=== PATIENT | female | born 1970 | race American Indian/Alaskan Native ===

== ENCOUNTER 2017-07-13 09:43 | Emergency (ER) | payer SELFPAY ==
[2017-07-13 09:51] VITALS: O2SAT 100
--- NOTE | 2017-07-13 10:16 | C.PDOC ---
History Of Present Illness 47 yr old female presents to the ER with complaints of itchy, diffuse rash which started on both legs n spread to the torso and arms 2 days ago. Patient states she had some almonds and cashews. Patient denies fever, chills, chest pain, SOB, throat swelling, mouth swelling, lip swelling, nausea, vomiting, weakness or numbness. Time Seen by Provider: 07/13/17 10:00 Chief Complaint (Nursing): Abnormal Skin Integrity History Per: Patient History/Exam Limitations: no limitations Onset/Duration Of Symptoms: Days (2) Past Medical History Reviewed: Historical Data, Nursing Documentation, Vital Signs Vital Signs: Last Vital Signs Temp 98.8 F 07/13/17 10:30 Pulse 95 H 07/13/17 10:30 Resp 18 07/13/17 10:30 BP 109/71 07/13/17 10:30 Pulse Ox 100 07/13/17 11:13 Family History: States: No Known Family Hx - Social History Hx Alcohol Use: No Hx Substance Use: No - Immunization History Hx Influenza Vaccination: No Review Of Systems Except As Marked, All Systems Reviewed And Found Negative. Constitutional: Negative for: Fever, Chills ENT: Negative for: Mouth Swelling, Throat Swelling Cardiovascular: Negative for: Chest Pain Respiratory: Negative for: Shortness of Breath Gastrointestinal: Negative for: Nausea, Vomiting Skin: Positive for: Rash (Itchy rash to both legs, torso and arms.) Neurological: Negative for: Weakness, Numbness Physical Exam - Physical Exam Appears: Non-toxic, No Acute Distress, In Acute Distress (Mildly uncomfortable) Skin: Warm, Dry, Rash (Diffuse, macular papular rash to the legs, arms, abdomen and back. Blanching and non vesicular. Spares the palms and solves.) Head: Atraumatic, Normacephalic Oral Mucosa: Moist Tongue: Normal Appearing, No Swelling Lips: Normal Appearing, No Swelling Throat: Normal, No Erythema, No Exudate, No Drooling Neck: Normal, Normal ROM, Supple Chest: Symmetrical, No Tenderness Cardiovascular: Rhythm Regular, No Murmur Respiratory: Normal Breath Sounds, No Rales, No Rhonchi, No Stridor, No Wheezing Extremity: Normal ROM, No Swelling Neurological/Psych: Oriented x3, Normal Speech, Normal Motor ED Course And Treatment O2 Sat by Pulse Oximetry: 100 (RA) Pulse Ox Interpretation: Normal Progress Note: PLAN: Benadryl PO, Pepcid PO & Prednisone PO. Disposition Counseled Patient/Family Regarding: Diagnosis, Need For Followup, Rx Given - Disposition Referrals: [facility] [Outside] Disposition: HOME/ ROUTINE Disposition Time: 10:35 Condition: STABLE Additional Instructions: FOLLOW UP WITH YOUR DOCTOR/CLINIC IN 1-2 DAYS USE MEDICATIONS DIRECTED RETURN TO ER IF SYMPTOMS WORSEN AVOID ALMONDS/CASHEWS IN THE FUTURE Prescriptions: DiphenhydrAMINE [Benadryl] 25 mg PO Q6 PRN #20 cap PRN Reason: Itching / Pruritus predniSONE [predniSONE Tab] 40 mg PO DAILY #6 tab Instructions: Urticaria (ED) Forms: [facility] (Georgian), Work Excuse Print Language: LUXEMBOURGISH - Clinical Impression Clinical Impression: Urticaria, Allergic reaction - Scribe Statement The provider has reviewed the documentation as recorded by the Maurilio Gallegos Provider Attestation: All medical record entries made by the Williamibclary were at my direction and personally dictated by me. I have reviewed the chart and agree that the record accurately reflects my personal performance of the history, physical exam, medical decision making, and the department course for this patient. I have also personally directed, reviewed, and agree with the discharge instructions and disposition.
[2017-07-13 10:32] VITALS: BP 109/71; PULSE 95; RESP 18; TEMP 98.8
== END 2017-07-13 10:37 | disposition home or self-care (01) ==
LOC: C.ER 09:43
DX: L50.0 Allergic urticaria (principal)

== ENCOUNTER 2017-07-16 10:27 | Inpatient (IN) | payer SELFPAY ==
[2017-07-16] MEDS ORDERED: Sodium Chloride 0.9% 1,000 ML IV STA (11:39)
[2017-07-16 12:18] LABS: BASO # 0.1 K/uL (0.0-0.2); BASO % 0.5 % (0.0-2.0); EOS # 0.1 K/uL (0.0-0.7); EOS % 0.5 % (0.0-4.0); HEMATOCRIT 20.6 % (34.0-47.0); LYMPH # 1.3 K/uL (1.0-4.3); LYMPH % 7.5 % (20.0-40.0); MEAN CELL VOLUME 51.6 fL (81.0-99.0); MEAN CORPUSCULAR HEMOGLOBIN 13.6 pg (27.0-31.0); MEAN CORPUSCULAR HGB CONC 26.3 g/dL (33.0-37.0); MEAN PLATELET VOLUME 8.7 fL (7.2-11.7); MONO # 0.7 K/uL (0.0-0.8); MONO % 4.2 % (0.0-10.0); NRBC % 0.1 % (0.0-2.0); PLATELET COUNT 394 K/uL (130-400); RED CELL DISTRIBUTION WIDTH 20.8 % (11.5-14.5); WHITE BLOOD COUNT 16.7 K/uL (4.8-10.8)
[2017-07-16] MEDS ORDERED: Sodium Chloride 0.9% 1,000 ML ONE (12:24)
[2017-07-16 12:26] LABS: CHLORIDE 106 mmol/L (98-107); SODIUM 140 mmol/L (132-148)
[2017-07-16 12:27] LABS: POTASSIUM 4.1 mmol/L (3.6-5.2)
[2017-07-16 12:29] LABS: ALKALINE PHOSPHATASE 69 U/L (38-126); ALT/SGPT 25 U/L (9-52); AST/SGOT 23 U/L (14-36); BILIRUBIN,TOTAL 0.4 mg/dL (0.2-1.3); BLOOD UREA NITROGEN 12 mg/dL (7-17); CARBON DIOXIDE 23 mmol/L (22-30); GFR AFRICAN-AMERICAN > 60; GLUCOSE,RANDOM 245 mg/dL (65-105); TOTAL PROTEIN 7.2 g/dL (6.3-8.3)
[2017-07-16 12:30] LABS: CALCIUM 8.9 mg/dl (8.6-10.4)
[2017-07-16 12:46] LABS: RBC URINE 2274 /hpf (0-3); URINE BACTERIA RARE (<OCC); URINE BILIRUBIN NEGATIVE (NEGATIVE); URINE BLOOD 3+ (NEGATIVE); URINE COLOR Red (YELLOW); URINE GLUCOSE (UA) NORMAL (Normal); URINE KETONE NEGATIVE (NEGATIVE); URINE LEUKOCYTE ESTERASE 1+ Leu/uL (Negative); URINE PROTEIN 2+ mg/dL (NEGATIVE); URINE UROBILINOGEN NORMAL mg/dL (0.2-1.0)
[2017-07-16 12:47] LABS: WBC URINE 4 /hpf (0-5)
[2017-07-16 13:01] LABS: THYROID STIMULATING HORMONE 0.47 mIU/L (0.46-4.68)
[2017-07-16 13:22] LABS: EOSINOPHIL 1 % (0-4); TOTAL CELLS COUNTED 100
[2017-07-16 13:23] LABS: NEUTROPHIL 85 % (50-75)
--- NOTE | 2017-07-16 13:23 | C.PDOC ---
History Of Present Illness 47-year-old female, PMHx includes sickle cell trait and prior anemia, presents to the emergency department with complaints of an allergic reaction three weeks ago. Patient states she ate nuts and developed generalized urticaria. Patient was given Prednisone and Benadryl. States she has rash and lesions in mouth. Associated symptoms include light headedness, and shortness of breath on exertion. Patient notes she was recently diagnosed with fibroids and her periods were heavy. Denies nausea/vomiting, fevers, chills, or any other associated symptoms. No other complaints at this time. Time Seen by Provider: 07/16/17 10:40 Chief Complaint (Nursing): Lower Extremity Problem/Injury History Per: Patient History/Exam Limitations: no limitations Past Medical History Reviewed: Historical Data, Nursing Documentation, Vital Signs Vital Signs: Last Vital Signs Temp 98.2 F 07/16/17 18:03 Pulse 104 H 07/16/17 18:03 Resp 20 07/16/17 18:03 BP 149/67 07/16/17 18:03 Pulse Ox 100 07/16/17 18:03 Family History: States: No Known Family Hx - Social History Hx Alcohol Use: No Hx Substance Use: No - Immunization History Hx Tetanus Toxoid Vaccination: No Hx Influenza Vaccination: No Hx Pneumococcal Vaccination: No Review Of Systems Except As Marked, All Systems Reviewed And Found Negative. Constitutional: Negative for: Fever, Chills Cardiovascular: Negative for: Chest Pain Respiratory: Positive for: SOB with Excertion Gastrointestinal: Negative for: Vomiting Physical Exam - Physical Exam Appears: Non-toxic, No Acute Distress Skin: Warm, Dry, Other (ertythematous rash generalized, mostly on lower extremities: sparing palms and soles) Extremity: Other (tender to palpation: no calf tenderness or swell. Left knee mildly swollen. ) Neurological/Psych: Oriented x3, Normal Speech ED Course And Treatment - Laboratory Results Result Diagrams: 07/16/17 15:17 07/16/17 12:10 O2 Sat by Pulse Oximetry: 100 Medical Decision Making Medical Decision Making: Plan: * Type and Screen * CBC * C-Reactive Protein * Percocet, IVFs, Toradol * Reassess and Disposition Hgb found to be 5.4, patient will be transfused. Case discussed w/ Dr. Mercedes who accepted patient for observation. Disposition - Disposition Disposition: HOSPITALIZED Disposition Time: 13:23 Condition: FAIR - Clinical Impression Clinical Impression: Symptomatic anemia, Rash, Extremity pain - Scribe Statement The provider has reviewed the documentation as recorded by the Scribe (Anahi Pope) All medical record entries made by the Scribe were at my direction and personally dictated by me. I have reviewed the chart and agree that the record accurately reflects my personal performance of the history, physical exam, medical decision making, and the department course for this patient. I have also personally directed, reviewed, and agree with the discharge instructions and disposition. Decision To Admit - Pt Status Changed To: Hospital Disposition Of: Observation - . Bed Request Type: Regular Admitting Physician: Cuco Mercedes Patient Diagnosis: Symptomatic anemia, Rash, Extremity pain
--- NOTE | 2017-07-16 13:49 | RAD ---
PROCEDURE: Left Knee Radiographs. HISTORY: Pain. COMPARISON: None. FINDINGS: BONES: No acute compression fractures no retropulsed fragments. JOINTS: There is mild medial joint space narrowing with what appears represent subchondral sclerosis along the femoral condyles and proximal medial tibial plateau. Small marginal medial osteophyte formation present. Slight spurring of the tibial spines. Additionally, small posterior patella osteophyte formation with small anterior patella enthesophyte formation. JOINT EFFUSION: Small to medium size suprapatellar joint effusion. OTHER FINDINGS: No radiopaque foreign bodies are identified. IMPRESSION: No evidence of acute displaced fracture nor dislocation. Mild DJD with small to medium size suprapatellar joint effusion.
[2017-07-16] MEDS ORDERED: Oxycodone/Acetaminophen 5/325 mg Tab ONE (14:02)
[2017-07-16] MEDS ORDERED: Oxycodone/Acetaminophen 5/325 mg Tab PO STA ×2 (14:21→23:11)
[2017-07-16 15:22] LABS: BASO # 0.1 K/uL (0.0-0.2); BASO % 0.6 % (0.0-2.0); EOS % 0.1 % (0.0-4.0); HEMATOCRIT 20.5 % (34.0-47.0); LYMPH # 1.4 K/uL (1.0-4.3); LYMPH % 8.5 % (20.0-40.0); MEAN CORPUSCULAR HEMOGLOBIN 13.6 pg (27.0-31.0); MEAN CORPUSCULAR HGB CONC 26.7 g/dL (33.0-37.0); MEAN PLATELET VOLUME 8.6 fL (7.2-11.7); MONO # 0.5 K/uL (0.0-0.8); MONO % 3.2 % (0.0-10.0); NRBC % 0.1 % (0.0-2.0); RED CELL DISTRIBUTION WIDTH 21.1 % (11.5-14.5); WHITE BLOOD COUNT 16.4 K/uL (4.8-10.8)
[2017-07-16 15:50] LABS: ERYTHROCYTE SEDIMENTATION RATE 128 mm/hr (0-20)
--- NOTE | 2017-07-16 16:18 | CP.PCM.HP ---
History of Present Illness - History of Present Illness History of Present Illness: This is a 47 yo female with past medical hx of fibroids, anemia, sickle cell trait, presenting with chief complaint of leg pain/knee pain and rash. 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 She noticed her throat started itching. The next day, she had some almonds and cashews as well and later in the day started developing a rash on her legs. It began spreading up her body and started involving her abdomen and back and her arms. It was not itchy. She came into [facility] ER, says she was diagnosed with an "allergic reaction," and discharged home on benadryl and prednisone. The rash resolved incompletely and then started developing on her palms and soles as well. She then began feeling a heaviness in her legs and felt she could not walk. She is also reporting left knee pain. No recent travel. She is currently on her period and says she has been having heavy periods. PMH: sickle cell trait, anemia, fibroid PSH: C section x 4, cholecystectomy Allergies: NKDA Home meds: just recently prednisone and benadryl FH: HTN, eczema Social hx: Former smoker. Denies drinking and drug use. Lives in [place]. Sexual hx: denies recent sexual contact in the past 2 weeks. Normally with 1 partner. Present on Admission - Present on Admission Any Indicators Present on Admission: No History of DVT/PE: No History of Uncontrolled Diabetes: No Urinary Catheter: No Decubitus Ulcer Present: No Review of Systems - Review of Systems All systems: reviewed and no additional remarkable complaints except Review of Systems: no fevers, chills, vomiting, diarrhea, vaginal discharge. negative except per HPI. Past Patient History - Infectious Disease Hx of Infectious Diseases: None - Tetanus Immunizations Tetanus Immunization: Unknown - Past Medical History & Family History Past Medical History?: Yes Past Family History: Reviewed and not pertinent - Past Social History Smoking Status: Former Smoker Chewing Tobacco Use: No Cigar Use: No Alcohol: None Drugs: Denies Home Situation {Lives}: With Family Domestic Violence: Negative - ENDOCRINE/METABOLIC Hx Endocrine Disorders: Yes Other/Comment: sickle cell trait - PSYCHIATRIC Hx Substance Use: No - SURGICAL HISTORY Hx Surgeries: Yes Hx Section: Yes Other/Comment: kidney stone left side - ANESTHESIA Hx Anesthesia: Yes Hx Anesthesia Reactions: No Meds Allergies/Adverse Reactions: Allergies Allergy/AdvReac Type Severity Reaction Status Date / Time No Known Allergies Allergy Verified 07/16/17 10:32 Physical Exam - Constitutional Appears: Non-toxic, No Acute Distress - Head Exam Head Exam: ATRAUMATIC, NORMAL INSPECTION, NORMOCEPHALIC - Eye Exam Eye Exam: EOMI - ENT Exam ENT Exam: Mucous Membranes Moist - Neck Exam Neck exam: Positive for: Full Rom, Normal Inspection - Respiratory Exam Respiratory Exam: NORMAL BREATHING PATTERN. absent: Respiratory Distress - Cardiovascular Exam Cardiovascular Exam: +S1, +S2 - GI/Abdominal Exam GI & Abdominal Exam: Normal Bowel Sounds, Soft. absent: Tenderness - Extremities Exam Extremities exam: Negative for: normal inspection Additional comments: left knee effusion, some swelling in legs b/l - Back Exam Back exam: absent: NORMAL INSPECTION - Neurological Exam Neurological exam: Alert, Oriented x3 - Psychiatric Exam Psychiatric exam: Normal Affect, Normal Mood - Skin Skin Exam: Rash Additional comments: purpuric rash diffusely b/l legs and abdomen and back and arms, also on palms and soles, no vesicles, no blisters, nontender Results - Vital Signs Recent Vital Signs: Last Vital Signs Temp 98.1 F 07/16/17 15:40 Pulse 101 H 07/16/17 15:40 Resp 20 07/16/17 15:40 BP 119/68 07/16/17 15:40 Pulse Ox 100 07/16/17 15:40 - Labs Result Diagrams: 07/16/17 15:17 07/16/17 12:10 Labs: Laboratory Results - last 24 hr 07/16/17 15:17 WBC 16.4 H RBC 4.01 Hgb 5.5 L* Hct 20.5 L MCV 51.0 L MCH 13.6 L MCHC 26.7 L RDW 21.1 H Plt Count 400 MPV 8.6 Neut % (Auto) 87.6 H Lymph % (Auto) 8.5 L [place] % (Auto) 3.2 Eos % (Auto) 0.1 Baso % (Auto) 0.6 Neut # 14.4 H Lymph # 1.4 [place] # 0.5 Eos # 0.0 Baso # 0.1 Assessment & Plan - Assessment and Plan (Free Text) Assessment: This is a 47 yo female with past medical hx of fibroids, heavy menses, anemia, sickle cell trait presenting with 1. Purpuric rash -ID consulted. recs appreciated. -blood cultures x 2 -RPR -HIV -hepatitis panel -echo to rule out endocarditis -will check urine for gonorrhea and chlamydia 2. Left knee effusion -rule out septic joint -orthopedic consult requested 3. Anemia -pt is mildly short of breath -will transfuse 2 units of packed red blood cells -f/u cbc 4. hx of fibroids/heavy menses -may need ENGRAVER TENDER consult. -continue to monitor 5. GI/DVT ppx -scds -protonix daily discussed with Dr. Mercedes
[2017-07-17] MEDS ORDERED: Piperacillin/Tazobact 3.375 GM in Sodium Chloride 100 ML IVPB ONE (02:16)
[2017-07-17 06:42] LABS: BASO # 0.1 K/uL (0.0-0.2); BASO % 0.5 % (0.0-2.0); EOS % 0.2 % (0.0-4.0); HEMATOCRIT 23.9 % (34.0-47.0); LYMPH # 1.9 K/uL (1.0-4.3); LYMPH % 12.9 % (20.0-40.0); MEAN CORPUSCULAR HGB CONC 29.3 g/dL (33.0-37.0); MEAN PLATELET VOLUME 8.5 fL (7.2-11.7); MONO # 0.8 K/uL (0.0-0.8); MONO % 5.2 % (0.0-10.0); NRBC % 0.1 % (0.0-2.0); RED CELL DISTRIBUTION WIDTH 32.4 % (11.5-14.5); WHITE BLOOD COUNT 14.8 K/uL (4.8-10.8)
[2017-07-17 06:52] LABS: ALB/GLOB RATIO 0.9 (1.0-2.1); ALKALINE PHOSPHATASE 65 U/L (38-126); ALT/SGPT 28 U/L (9-52); AST/SGOT 22 U/L (14-36); BILIRUBIN,TOTAL 0.6 mg/dL (0.2-1.3); BLOOD UREA NITROGEN 13 mg/dL (7-17); CALCIUM 8.8 mg/dl (8.6-10.4); CARBON DIOXIDE 24 mmol/L (22-30); CHLORIDE 106 mmol/L (98-107); GFR AFRICAN-AMERICAN > 60; GLUCOSE,RANDOM 110 mg/dL (65-105); PHOSPHOROUS 3.5 mg/dL (2.5-4.5); POTASSIUM 3.8 mmol/L (3.6-5.2); SODIUM 141 mmol/L (132-148); TOTAL PROTEIN 6.7 g/dL (6.3-8.3)
[2017-07-17 06:55] LABS: MEAN CELL VOLUME 57.9 fL (81.0-99.0)
[2017-07-17] MEDS: Oxycodone/Acetaminophen 5/325 mg Tab PO PRN ×2 (08:42→18:26)
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
[2017-07-17 12:32] LABS: FLUID TYPE SYNOVIAL FLUID
[2017-07-17 13:46] LABS: CRYSTAL TYPE CalciumPyrophosphate
--- NOTE | 2017-07-17 15:18 | CARD ---
APPROVED REPORT EXAM: Two-dimensional and M-mode echocardiogram with Doppler and color Doppler. Other Information Quality : GoodRhythm : NSR INDICATION R/O ENDOCARDITIS; ANEMIA 2D DIMENSIONS IVSd1.0 (0.7-1.1cm)LVDd5.1 (3.9-5.9cm) PWd1.0 (0.7-1.1cm)LVDs3.5 (2.5-4.0cm) FS (%) 31.8 %LVEF (%)59.5 (>50%) M-Mode DIMENSIONS Left Atrium (MM)3.42 (2.5-4.0cm)Aortic Root2.87 (2.2-3.7cm) Aortic Cusp Exc.2.23 (1.5-2.0cm) Mitral Valve MV E Irjgwnea147.9cm/sMV A Hohiohwy450.9cm/sE/A ratio1.1 TDI E/Lateral E'0.0E/Medial E'0.0 Tricuspid Valve TR Peak [id number]/sTR Peak Gr.[id number] LEFT VENTRICLE The left ventricle is normal size. There is normal left ventricular wall thickness. The left ventricular function is normal. The left ventricular ejection fraction is within the normal range. There is normal LV segmental wall motion. The left ventricular diastolic function is normal. RIGHT VENTRICLE The right ventricle is normal size. ATRIA The left atrium size is normal. The right atrium size is normal. AORTIC VALVE The aortic valve is normal in structure. MITRAL VALVE Mitral regurgitation is trace to mild. TRICUSPID VALVE There is mild tricuspid regurgitation. <Conclusion> Normal LV systolic function. Normal chamber size. Trace to mild MR. Mild TR. No definite vegetation seen, consider HUY if clinically indicated.
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
[2017-07-17] MEDS: Piperacillin/Tazobact 3.375 GM in Sodium Chloride 100 ML IVPB SCH (20:16)
--- NOTE | 2017-07-17 21:33 | CP.PCM.CON ---
History of Present Illness - History of Present Illness History of Present Illness: dictated Past Patient History - Infectious Disease Hx of Infectious Diseases: None - Tetanus Immunizations Tetanus Immunization: Unknown - Past Medical History & Family History Past Medical History?: Yes Past Family History: Reviewed and not pertinent - Past Social History Smoking Status: Former Smoker - ENDOCRINE/METABOLIC Hx Endocrine Disorders: Yes Other/Comment: sickle cell trait - HEMATOLOGICAL/ONCOLOGICAL Hx Anemia: Yes Hx Blood Transfusions: Yes Hx Blood Transfusion Reaction: No - MUSCULOSKELETAL/RHEUMATOLOGICAL Hx Falls: No - GASTROINTESTINAL Hx Gall Bladder Disease: Yes Other/Comment: hx of cholecystectomy - PSYCHIATRIC Hx Substance Use: No - SURGICAL HISTORY Hx Surgeries: Yes Hx Section: Yes Hx Cholecystectomy: Yes Other/Comment: kidney stone left side - ANESTHESIA Hx Anesthesia: Yes Hx Anesthesia Reactions: No Hx Malignant Hyperthermia: No Meds Allergies/Adverse Reactions: Allergies Allergy/AdvReac Type Severity Reaction Status Date / Time No Known Allergies Allergy Verified 07/16/17 10:32 - Medications Medications: Current Medications Diphenhydramine HCl (Benadryl) 25 mg PO BID [facility] Last Admin: 07/17/17 20:16 Dose: 25 mg Piperacillin Sod/Tazobactam (Sod 3.375 gm/ Sodium Chloride) 100 mls @ 200 mls/ hr IVPB Q6H [facility] Last Admin: 07/17/17 20:16 Dose: 200 mls/hr Gentamicin Sulfate 80 mg/ (Sodium Chloride) 102 mls @ 100 mls/hr IVPB Q8H [facility] Vancomycin/Sodium Chloride (Vancocin) 1 gm in 200 mls @ 133 mls/hr IVPB Q12H [facility] Stop: 07/22/17 22:01 Ketorolac Tromethamine (Toradol) 15 mg IVP Q6 PRN PRN Reason: Pain, moderate (4-7) Last Admin: 07/17/17 15:55 Dose: 15 mg Methylprednisolone (Solu-Medrol) 40 mg IV Q8 [facility] Oxycodone/Acetaminophen (Percocet 5/325 Mg Tab) 1 tab PO Q4H PRN PRN Reason: pain Stop: 07/20/17 08:28 Last Admin: 07/17/17 18:26 Dose: 1 tab Pantoprazole Sodium (Protonix Inj) 40 mg IVP DAILY [facility] Last Admin: 07/17/17 09:46 Dose: 40 mg Pneumococcal Polyvalent Vaccine (Pneumovax 23 Vaccine) 0.5 ml IM .ONCE ONE Stop: 07/18/17 10:01 Results - Vital Signs Recent Vital Signs: Last Vital Signs Temp 97.9 F 07/17/17 19:21 Pulse 100 H 07/17/17 19:21 Resp 18 07/17/17 19:21 BP 157/95 H 07/17/17 19:21 Pulse Ox 100 07/17/17 14:46 - Labs Result Diagrams: 07/17/17 06:29 07/17/17 06:29 Labs: Laboratory Results - last 24 hr 07/16/17 07/17/17 07/17/17 16:23 06:29 06:29 WBC 14.8 H RBC 4.13 Hgb 7.0 L Hct 23.9 L MCV 57.9 L D MCH 17.0 L MCHC 29.3 L RDW 32.4 H Plt Count 369 MPV 8.5 Neut % (Auto) 81.2 H Lymph % (Auto) 12.9 L [place] % (Auto) 5.2 Eos % (Auto) 0.2 Baso % (Auto) 0.5 Neut # 12.0 H Lymph # 1.9 [place] # 0.8 Eos # 0.0 Baso # 0.1 Sodium 141 Potassium 3.8 Chloride 106 Carbon Dioxide 24 Anion Gap 16 BUN 13 Creatinine 0.7 Est GFR ( Amer) > 60 Est GFR (Non-Af Amer) > 60 Random Glucose 110 H Calcium 8.8 Phosphorus 3.5 Magnesium Total Bilirubin 0.6 AST 22 ALT 28 Alkaline Phosphatase 65 Total Protein 6.7 Albumin 3.2 L Globulin 3.5 Albumin/Globulin Ratio 0.9 L Fluid Type Fluid Crystals Synovial WBC Synovial RBC Synovial Neutrophils Synovial Lymphocytes Synov Monos/Macrophage Synovial Crystal Type Synovial Fluid Comment Hepatitis A IgM Ab Negative Hep Bs Antigen Negative Hep B Core IgM Ab Negative Hepatitis C Antibody Negative 07/17/17 07/17/17 07/17/17 06:29 12:31 12:31 WBC RBC Hgb Hct MCV MCH MCHC RDW Plt Count MPV Neut % (Auto) Lymph % (Auto) [place] % (Auto) Eos % (Auto) Baso % (Auto) Neut # Lymph # [place] # Eos # Baso # Sodium Potassium Chloride Carbon Dioxide Anion Gap BUN Creatinine Est GFR ( Amer) Est GFR (Non-Af Amer) Random Glucose Calcium Phosphorus Magnesium 1.6 Total Bilirubin AST ALT Alkaline Phosphatase Total Protein Albumin Globulin Albumin/Globulin Ratio Fluid Type Synovial fluid Fluid Crystals Positive H Synovial WBC 89567.0 H Synovial RBC 4266.0 H Synovial Neutrophils 94.0 H Synovial Lymphocytes 2.0 H Synov Monos/Macrophage 4 H Synovial Crystal Type Calciumpyrophosphate Synovial Fluid Comment Hepatitis A IgM Ab Hep Bs Antigen Hep B Core IgM Ab Hepatitis C Antibody
[2017-07-17] MEDS: MethylPREDNISolone 40 mg Vial IV SCH (22:11)
[2017-07-17] MEDS: Vancomycin 1 gm/NS 200 ml 1 GM/200 ML BAG IVPB SCH (22:12)
[2017-07-18] MEDS: Piperacillin/Tazobact 3.375 GM in Sodium Chloride 100 ML IVPB SCH ×4 (01:35→18:35)
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
[2017-07-18 06:26] LABS: BASO # 0.1 K/uL (0.0-0.2); BASO % 0.5 % (0.0-2.0); EOS % 0.1 % (0.0-4.0); HEMATOCRIT 27.7 % (34.0-47.0); LYMPH # 1.2 K/uL (1.0-4.3); LYMPH % 8.2 % (20.0-40.0); MEAN CELL VOLUME 60.2 fL (81.0-99.0); MEAN CORPUSCULAR HEMOGLOBIN 18.7 pg (27.0-31.0); MEAN CORPUSCULAR HGB CONC 31.1 g/dL (33.0-37.0); MEAN PLATELET VOLUME 8.7 fL (7.2-11.7); MONO # 0.2 K/uL (0.0-0.8); MONO % 1.6 % (0.0-10.0); NRBC % 0.2 % (0.0-2.0); PLATELET COUNT 382 K/uL (130-400); RED CELL DISTRIBUTION WIDTH 34.6 % (11.5-14.5); WHITE BLOOD COUNT 14.8 K/uL (4.8-10.8)
[2017-07-18] MEDS: MethylPREDNISolone 40 mg Vial IV SCH ×3 (06:42→22:40)
[2017-07-18 06:48] LABS: CHLORIDE 100 mmol/L (98-107)
[2017-07-18 06:49] LABS: POTASSIUM 4.6 mmol/L (3.6-5.2); SODIUM 135 mmol/L (132-148)
[2017-07-18 06:51] LABS: ALKALINE PHOSPHATASE 76 U/L (38-126); ALT/SGPT 36 U/L (9-52); AST/SGOT 21 U/L (14-36); BILIRUBIN,TOTAL 0.6 mg/dL (0.2-1.3); BLOOD UREA NITROGEN 12 mg/dL (7-17); CARBON DIOXIDE 23 mmol/L (22-30); GFR AFRICAN-AMERICAN > 60; GLUCOSE,RANDOM 261 mg/dL (65-105); TOTAL PROTEIN 6.8 g/dL (6.3-8.3)
[2017-07-18 06:52] LABS: CALCIUM 8.9 mg/dl (8.6-10.4); MAGNESIUM 1.6 mg/dL (1.6-2.3); PHOSPHOROUS 4.8 mg/dL (2.5-4.5)
--- NOTE | 2017-07-18 07:34 | CP.PCM.PN ---
Subjective - Date & Time of Evaluation Date of Evaluation: 07/18/17 Time of Evaluation: 07:32 - Subjective Subjective: Patient states her left knee feels better today. She denies pain in other joints or extremities. Denies CP/SOB/dizziness/nausea/vomiting/numbness/ tingling. Review of Systems - Review of Systems All systems: reviewed and no additional remarkable complaints except - Constitutional Additional comments: denies - Cardiovascular Cardiovascular: As Per HPI - Respiratory Respiratory: As Per HPI - Gastrointestinal Gastrointestinal: As Per HPI - Musculoskeletal Musculoskeletal: As Par HPI - Integumentary Integumentary: UNREMARKABLE - Neurological Neurological: As Per HPI - Hematologic/Lymphatic Hematologic: UNREMARKABLE Objective - Vital Signs/Intake and Output Vital Signs (last 24 hours): Temp Pulse Resp BP Pulse Ox 99 F 90 24 151/78 H 100 07/18/17 06:00 07/18/17 06:00 07/18/17 06:00 07/18/17 04:00 07/17/17 14:46 Intake and Output: 07/18/17 07/18/17 06:59 18:59 Intake Total 2000 Output Total 1050 Balance 950 - Medications Medications: Current Medications Diphenhydramine HCl (Benadryl) 25 mg PO BID [facility] Last Admin: 07/17/17 20:16 Dose: 25 mg Piperacillin Sod/Tazobactam (Sod 3.375 gm/ Sodium Chloride) 100 mls @ 200 mls/ hr IVPB Q6H [facility] Last Admin: 07/18/17 06:42 Dose: 200 mls/hr Gentamicin Sulfate 80 mg/ (Sodium Chloride) 102 mls @ 100 mls/hr IVPB Q8H [facility] Last Admin: 07/18/17 04:02 Dose: 100 mls/hr Vancomycin/Sodium Chloride (Vancocin) 1 gm in 200 mls @ 133 mls/hr IVPB Q12H [facility] Stop: 07/22/17 22:01 Last Admin: 07/17/17 22:12 Dose: 133 mls/hr Ketorolac Tromethamine (Toradol) 15 mg IVP Q6 PRN PRN Reason: Pain, moderate (4-7) Last Admin: 07/17/17 15:55 Dose: 15 mg Methylprednisolone (Solu-Medrol) 40 mg IV Q8 [facility] Last Admin: 07/18/17 06:42 Dose: 40 mg Oxycodone/Acetaminophen (Percocet 5/325 Mg Tab) 1 tab PO Q4H PRN PRN Reason: pain Stop: 07/20/17 08:28 Last Admin: 07/17/17 18:26 Dose: 1 tab Pantoprazole Sodium (Protonix Inj) 40 mg IVP DAILY [facility] Last Admin: 07/17/17 09:46 Dose: 40 mg Pneumococcal Polyvalent Vaccine (Pneumovax 23 Vaccine) 0.5 ml IM .ONCE ONE Stop: 07/18/17 10:01 - Labs Labs: 07/18/17 06:19 07/18/17 06:19 PT 11.8 SECONDS (9.7-12.2) 07/16/17 12:10 INR 1.0 07/16/17 12:10 APTT 26 SECONDS (21-34) 07/16/17 12:10 - Constitutional Appears: Well, No Acute Distress - Head Exam Head Exam: ATRAUMATIC - Respiratory Exam Respiratory Exam: NORMAL BREATHING PATTERN - Cardiovascular Exam Additional comments: +DP/PT pulses - Extremities Exam Additional comments: No increased effusion left knee no erythema improving ROM - Neurological Exam Neurological Exam: Alert, Awake, Oriented x3 Neuro motor strength exam: Left Lower Extremity: 5 (+DF/PF ankle, knee AROM improving) - Psychiatric Exam Psychiatric exam: Normal Affect, Normal Mood - Skin Skin Exam: Dry, Intact, Normal Color, Warm Assessment and Plan (1) Pseudogout of left knee Assessment & Plan: symtomatic treatment PT/OT still awaiting dopplers gram stain many WBC no organisms, f/u culture +CPPD crystals d/w Dr. Pope, agrees with above Status: Acute (2) Degenerative joint disease of knee, left Assessment & Plan: mild Status: Chronic
[2017-07-18 08:44] LABS: EOSINOPHIL 1 % (0-4); GIANT PLATELETS PRESENT; LARGE PLATELETS PRESENT; NEUTROPHIL 85 % (50-75); NUCLEATED RED BLOOD CELL 1 % (0-0); TOTAL CELLS COUNTED 100
[2017-07-18] MEDS: Vancomycin 1 gm/NS 200 ml 1 GM/200 ML BAG IVPB SCH ×2 (09:33→22:40)
[2017-07-18] MEDS ORDERED: Pneumococcal 23-Valent Vaccine IM ONE (10:00)
--- NOTE | 2017-07-18 15:13 | CP.PCM.PN ---
<Lottie Story GamalielDnaiel - Last Filed: 07/18/17 15:10> Subjective - Date & Time of Evaluation Date of Evaluation: 07/18/17 Time of Evaluation: 09:00 - Subjective Subjective: Medicine Progress Note: Patient seen and examined at bedside in AM. Patient reports no problems overnight and reports that she is feeling much better and that her rash on her arms and legs is improving. Patient also reports that her left knee is better and reports no current pain. Patient denies fever, chills, headache, chest pain , palpitations, shortness of breath, nausea, vomiting, diarrhea or constipation. Objective - Vital Signs/Intake and Output Vital Signs (last 24 hours): Temp Pulse Resp BP Pulse Ox 98.0 F 93 H 30 H 148/76 100 07/18/17 14:00 07/18/17 14:00 07/18/17 14:00 07/18/17 12:01 07/17/17 14:46 Intake and Output: 07/18/17 07/18/17 06:59 18:59 Intake Total 2000 600 Output Total 1050 500 Balance 950 100 - Medications Medications: Current Medications Diphenhydramine HCl (Benadryl) 25 mg PO BID [facility] Last Admin: 07/18/17 09:33 Dose: 25 mg Piperacillin Sod/Tazobactam (Sod 3.375 gm/ Sodium Chloride) 100 mls @ 200 mls/ hr IVPB Q6H [facility] Last Admin: 07/18/17 14:28 Dose: 200 mls/hr Gentamicin Sulfate 80 mg/ (Sodium Chloride) 102 mls @ 100 mls/hr IVPB Q8H [facility] Last Admin: 07/18/17 13:00 Dose: 100 mls/hr Vancomycin/Sodium Chloride (Vancocin) 1 gm in 200 mls @ 133 mls/hr IVPB Q12H [facility] Stop: 07/22/17 22:01 Last Admin: 07/18/17 09:33 Dose: 133 mls/hr Ketorolac Tromethamine (Toradol) 15 mg IVP Q6 PRN PRN Reason: Pain, moderate (4-7) Last Admin: 07/17/17 15:55 Dose: 15 mg Methylprednisolone (Solu-Medrol) 40 mg IV Q8 [facility] Last Admin: 07/18/17 14:02 Dose: 40 mg Oxycodone/Acetaminophen (Percocet 5/325 Mg Tab) 1 tab PO Q4H PRN PRN Reason: pain Stop: 07/20/17 08:28 Last Admin: 07/17/17 18:26 Dose: 1 tab Pantoprazole Sodium (Protonix Inj) 40 mg IVP DAILY [facility] Last Admin: 07/18/17 09:33 Dose: 40 mg - Labs Labs: 07/18/17 06:19 07/18/17 06:19 PT 11.8 SECONDS (9.7-12.2) 07/16/17 12:10 INR 1.0 07/16/17 12:10 APTT 26 SECONDS (21-34) 07/16/17 12:10 - Constitutional Appears: No Acute Distress - Head Exam Head Exam: ATRAUMATIC, NORMAL INSPECTION, NORMOCEPHALIC - Eye Exam Eye Exam: EOMI, Normal appearance, PERRL Pupil Exam: NORMAL ACCOMODATION - ENT Exam ENT Exam: absent: Normal Oropharynx (oral lesions on hard palate ) - Respiratory Exam Respiratory Exam: Clear to Ausculation Bilateral, NORMAL BREATHING PATTERN - Cardiovascular Exam Cardiovascular Exam: REGULAR RHYTHM, RRR, +S1, +S2 - GI/Abdominal Exam GI & Abdominal Exam: Soft, Normal Bowel Sounds. absent: Tenderness - Extremities Exam Extremities Exam: Normal Inspection. absent: Pedal Edema, Tenderness - Neurological Exam Neurological Exam: Alert, Awake, Oriented x3 - Psychiatric Exam Psychiatric exam: Normal Affect, Normal Mood - Skin Skin Exam: Rash (macular papular rash located bilateral lower extremities; anterior and posterior trunk; bilateral palms and soles) Assessment and Plan - Assessment and Plan (Free Text) Assessment: 1. Macular Papular Rash ID consulted: Dr. Briseno --> help appreciated - Blood cultures x 2 - RPR nonreactive - HIV negative - Hepatitis panel: Negative - ECHO to rule out endocarditis: EF 59.5%; No vegetations seen; Mild trace of MR ; Mild TR; Normal LV systolic function; Normal Chamber - f/u urine for gonorrhea and chlamydia - f/u Lyme - f/u Measles, Mumps, Rubella; [place]; Rickettsia 2. Left knee effusion secondary to Pseudogout Orthopedic Consult: Dr. Pope --> help appreciated - s/p arthrocentesis - Fluid crystals: positive - Synovial Neutrophils 94; WBC 25317; Lymphocytes 2.0; Crystal Type Calcium pyrophosphate - Blood Culture: Gram Positive Cocci - Blood Culture: No Growth - preliminary - Wound Culture: No Growth- preliminary - Zosyn started 07/17 - Gentamicin started 07/17 - Solu-Medrol 40mg Q8H - Toradol 30mg IVP - Benadryl 3. Acute Anemia - Transfuse 2 units of packed red blood cells 05/15 - H/H (05/16): 7/23.9 - Transfuse 1 unit of PRBC - H/H (05/17): 8.6/27.7 4. History of fibroids/heavy menses -may need [employer] consult. -continue to monitor 5. Prophylaxis - scds - protonix daily - VTE prophylaxis contraindication acute anemia Disposition: Possible discharge Case Discussed with Dr. Liseth Story PGY-1 <Kumar Childers H - Last Filed: 07/18/17 16:17> Objective - Vital Signs/Intake and Output Vital Signs (last 24 hours): Temp Pulse Resp BP Pulse Ox 97.0 F L 93 H 30 H 148/76 100 07/18/17 15:53 07/18/17 14:00 07/18/17 14:00 07/18/17 12:01 07/17/17 14:46 Intake and Output: 07/18/17 07/18/17 06:59 18:59 Intake Total 2000 600 Output Total 1050 500 Balance 950 100 - Medications Medications: Current Medications Diphenhydramine HCl (Benadryl) 25 mg PO BID [facility] Last Admin: 07/18/17 09:33 Dose: 25 mg Piperacillin Sod/Tazobactam (Sod 3.375 gm/ Sodium Chloride) 100 mls @ 200 mls/ hr IVPB Q6H [facility] Last Admin: 07/18/17 14:28 Dose: 200 mls/hr Gentamicin Sulfate 80 mg/ (Sodium Chloride) 102 mls @ 100 mls/hr IVPB Q8H [facility] Last Admin: 07/18/17 13:00 Dose: 100 mls/hr Vancomycin/Sodium Chloride (Vancocin) 1 gm in 200 mls @ 133 mls/hr IVPB Q12H [facility] Stop: 07/22/17 22:01 Last Admin: 07/18/17 09:33 Dose: 133 mls/hr Ketorolac Tromethamine (Toradol) 15 mg IVP Q6 PRN PRN Reason: Pain, moderate (4-7) Last Admin: 07/17/17 15:55 Dose: 15 mg Methylprednisolone (Solu-Medrol) 40 mg IV Q8 [facility] Last Admin: 07/18/17 14:02 Dose: 40 mg Oxycodone/Acetaminophen (Percocet 5/325 Mg Tab) 1 tab PO Q4H PRN PRN Reason: pain Stop: 07/20/17 08:28 Last Admin: 07/17/17 18:26 Dose: 1 tab Pantoprazole Sodium (Protonix Inj) 40 mg IVP DAILY [facility] Last Admin: 07/18/17 09:33 Dose: 40 mg - Labs Labs: 07/18/17 06:19 07/18/17 06:19 PT 11.8 SECONDS (9.7-12.2) 07/16/17 12:10 INR 1.0 07/16/17 12:10 APTT 26 SECONDS (21-34) 07/16/17 12:10 Attending/Attestation - Attestation I have personally seen and examined this patient.: Yes I have fully participated in the care of the patient.: Yes I have reviewed all pertinent clinical information, including history, physical exam and plan: Yes Notes (Text): 07/18/17 16:09 Medical Attending: Patient was seen and examined by me. Agree with the above note by the resident. The patient was explaining that the rash that was present on her forearms, chest , legs, was improved from before. Currently on IV solumedrol. I explained to the patient that likely the rash was due to food allergy however we nevertheless still have the patient on ABX as a precaution since one blood culture was a gram + that returned. Possible contaminant as the other culture is negative. Echo was negative for endocarditis. The patient reported also her knee pain and swelling had decreased as well. As mentioned previously the cultures for the knee was negative, there was findings of possible psuedogout. thank you Kumar Childers
--- NOTE | 2017-07-18 22:20 | CP.PCM.PN ---
Subjective - Date & Time of Evaluation Date of Evaluation: 07/18/17 Time of Evaluation: 03:00 - Subjective Subjective: dictated Objective - Vital Signs/Intake and Output Vital Signs (last 24 hours): Temp Pulse Resp BP Pulse Ox 98.6 F 83 25 H 133/79 100 07/18/17 20:00 07/18/17 20:09 07/18/17 20:09 07/18/17 20:09 07/17/17 14:46 Intake and Output: 07/18/17 07/19/17 18:59 06:59 Intake Total 600 100 Output Total 500 Balance 100 100 - Medications Medications: Current Medications Diphenhydramine HCl (Benadryl) 25 mg PO BID [facility] Last Admin: 07/18/17 18:00 Dose: Not Given Piperacillin Sod/Tazobactam (Sod 3.375 gm/ Sodium Chloride) 100 mls @ 200 mls/ hr IVPB Q6H [facility] Last Admin: 07/18/17 18:35 Dose: 200 mls/hr Gentamicin Sulfate 80 mg/ (Sodium Chloride) 102 mls @ 100 mls/hr IVPB Q8H [facility] Last Admin: 07/18/17 20:05 Dose: 100 mls/hr Vancomycin/Sodium Chloride (Vancocin) 1 gm in 200 mls @ 133 mls/hr IVPB Q12H [facility] Stop: 07/22/17 22:01 Last Admin: 07/18/17 09:33 Dose: 133 mls/hr Ketorolac Tromethamine (Toradol) 15 mg IVP Q6 PRN PRN Reason: Pain, moderate (4-7) Last Admin: 07/17/17 15:55 Dose: 15 mg Methylprednisolone (Solu-Medrol) 40 mg IV Q8 [facility] Last Admin: 07/18/17 14:02 Dose: 40 mg Oxycodone/Acetaminophen (Percocet 5/325 Mg Tab) 1 tab PO Q4H PRN PRN Reason: pain Stop: 07/20/17 08:28 Last Admin: 07/17/17 18:26 Dose: 1 tab Pantoprazole Sodium (Protonix Inj) 40 mg IVP DAILY [facility] Last Admin: 07/18/17 09:33 Dose: 40 mg - Labs Labs: 07/18/17 06:19 07/18/17 06:19 PT 11.8 SECONDS (9.7-12.2) 07/16/17 12:10 INR 1.0 07/16/17 12:10 APTT 26 SECONDS (21-34) 07/16/17 12:10
[2017-07-19] MEDS: Piperacillin/Tazobact 3.375 GM in Sodium Chloride 100 ML IVPB SCH ×3 (00:46→15:33)
--- NOTE | 2017-07-19 01:41 | PN ---
SUBJECTIVE: I went to see the patient today. She was feeling a lot better. She said her rash is much subsided and her left knee is feeling better. She denied any fever. No chills, no chest pain, no shortness of breath. No nausea, no vomiting, no diarrhea. Left leg was feeling better, and she was still in ICU. PHYSICAL EXAMINATION GENERAL: She is alert and oriented. VITAL SIGNS: T-max was 98.6, pulse 83, blood pressure is 133/79, respirations are 25. HEENT: Head is atraumatic, normocephalic. Pupils are reacting to light. NECK: Supple. HEART: S1, S2, regular. LUNGS: Clear. No crackles or rales present. ABDOMEN: Soft, nontender. No guarding. No rigidity present. EXTREMITIES: The rash on her lower extremities, the blotches have decreased, the macular patches and appears faint. Left knee is still with the dressing, was removed. There was an area which was stabbed. There was equal warmth on both knees. There was no cellulitis noted at this time in the left knee. Extremity has no edema. LABORATORY DATA: White count is 14.8, hemoglobin 8.6, hematocrit 27.7, platelet count is 382. Sodium is 135, potassium 4.6, chloride is 100, CO2 is 23, creatinine 0.7. Yesterday, when I was dictating, I noted that her blood culture was positive for GPCs. The ID was pending, it turned out to be coagulase-negative staph and then it was only Staph epidermidis, coagulase-negative staph and second set is negative, MRSA is not detected. Wound culture is negative from the left knee, so we will discuss with the patient about her antibiotics, we had ordered all the tests for the rashes. Her Zosyn is still active, and she is on vancomycin. I would discontinue the gentamicin and we will review with the patient if she has any metal in her body otherwise and would repeat blood culture again tomorrow, one set again to see if it is negative. Since she had a rash, and we will follow left knee, and looks like to be pseudogout, but we will wait for the culture report and we will follow. Bryan Briseno MD
[2017-07-19] MEDS: MethylPREDNISolone 40 mg Vial IV SCH ×2 (06:10→15:32)
[2017-07-19 06:21] LABS: BASO % 0.1 % (0.0-2.0); HEMATOCRIT 26.6 % (34.0-47.0); LYMPH % 6.4 % (20.0-40.0); MEAN CELL VOLUME 60.6 fL (81.0-99.0); MEAN CORPUSCULAR HEMOGLOBIN 18.5 pg (27.0-31.0); MEAN CORPUSCULAR HGB CONC 30.6 g/dL (33.0-37.0); MEAN PLATELET VOLUME 8.8 fL (7.2-11.7); MONO # 0.5 K/uL (0.0-0.8); MONO % 3.6 % (0.0-10.0); PLATELET COUNT 410 K/uL (130-400)
[2017-07-19 06:31] LABS: CHLORIDE 102 mmol/L (98-107)
[2017-07-19 06:32] LABS: POTASSIUM 4.5 mmol/L (3.6-5.2); SODIUM 138 mmol/L (132-148)
[2017-07-19 06:34] LABS: ALB/GLOB RATIO 0.9 (1.0-2.1); ALKALINE PHOSPHATASE 71 U/L (38-126); AST/SGOT 16 U/L (14-36); BILIRUBIN,TOTAL 0.4 mg/dL (0.2-1.3); CARBON DIOXIDE 25 mmol/L (22-30); GFR AFRICAN-AMERICAN > 60
[2017-07-19 06:35] LABS: ALT/SGPT 29 U/L (9-52); BLOOD UREA NITROGEN 17 mg/dL (7-17); CALCIUM 9.4 mg/dl (8.6-10.4); GLUCOSE,RANDOM 306 mg/dL (65-105); MAGNESIUM 1.8 mg/dL (1.6-2.3); PHOSPHOROUS 3.8 mg/dL (2.5-4.5)
--- NOTE | 2017-07-19 07:26 | CP.PCM.PN ---
Subjective - Date & Time of Evaluation Date of Evaluation: 07/19/17 Time of Evaluation: 07:10 - Subjective Subjective: Patient states pain in left knee is improving. She asked about PT and getting out of bed. Denies CP/SOB/dizziness. Review of Systems - Review of Systems All systems: reviewed and no additional remarkable complaints except - Constitutional Additional comments: denies - Cardiovascular Cardiovascular: UNREMARKABLE - Respiratory Respiratory: UNREMARKABLE - Gastrointestinal Gastrointestinal: UNREMARKABLE - Musculoskeletal Musculoskeletal: As Par HPI - Integumentary Integumentary: UNREMARKABLE - Neurological Neurological: UNREMARKABLE - Hematologic/Lymphatic Hematologic: UNREMARKABLE Objective - Vital Signs/Intake and Output Vital Signs (last 24 hours): Temp Pulse Resp BP Pulse Ox 98.5 F 74 16 133/79 97 07/19/17 04:00 07/19/17 04:00 07/19/17 04:00 07/18/17 20:09 07/19/17 00:00 Intake and Output: 07/19/17 07/19/17 06:59 18:59 Intake Total 840 Output Total 800 Balance 40 - Medications Medications: Current Medications Diphenhydramine HCl (Benadryl) 25 mg PO BID [facility] Last Admin: 07/18/17 18:00 Dose: Not Given Piperacillin Sod/Tazobactam (Sod 3.375 gm/ Sodium Chloride) 100 mls @ 200 mls/ hr IVPB Q6H [facility] Last Admin: 07/19/17 06:29 Dose: 200 mls/hr Vancomycin/Sodium Chloride (Vancocin) 1 gm in 200 mls @ 133 mls/hr IVPB Q12H [facility] Stop: 07/22/17 22:01 Last Admin: 07/18/17 22:40 Dose: 133 mls/hr Ketorolac Tromethamine (Toradol) 15 mg IVP Q6 PRN PRN Reason: Pain, moderate (4-7) Last Admin: 07/17/17 15:55 Dose: 15 mg Methylprednisolone (Solu-Medrol) 40 mg IV Q8 [facility] Last Admin: 07/19/17 06:10 Dose: 40 mg Oxycodone/Acetaminophen (Percocet 5/325 Mg Tab) 1 tab PO Q4H PRN PRN Reason: pain Stop: 07/20/17 08:28 Last Admin: 07/17/17 18:26 Dose: 1 tab Pantoprazole Sodium (Protonix Inj) 40 mg IVP DAILY [facility] Last Admin: 07/18/17 09:33 Dose: 40 mg - Labs Labs: 07/19/17 06:05 07/19/17 06:05 PT 11.8 SECONDS (9.7-12.2) 07/16/17 12:10 INR 1.0 07/16/17 12:10 APTT 26 SECONDS (21-34) 07/16/17 12:10 - Constitutional Appears: Well, No Acute Distress - Head Exam Head Exam: ATRAUMATIC - Respiratory Exam Respiratory Exam: NORMAL BREATHING PATTERN - Cardiovascular Exam Additional comments: +DP/PT pulses - Extremities Exam Additional comments: calves softer, NT neg homans sensation intact no increase in joint effusion, less warm, no erythema - Neurological Exam Neurological Exam: Alert, Awake, Oriented x3 Neuro motor strength exam: Left Lower Extremity: 5 (+DF/PF, AROM knee 0-100 without pain) - Psychiatric Exam Psychiatric exam: Normal Affect, Normal Mood - Skin Skin Exam: Dry, Intact, Normal Color, Warm Assessment and Plan (1) Pseudogout of left knee Assessment & Plan: Improving clinically PT/OT, ROM, OOB VTE proph IS orthopedically stable cx neg x 24h, f/u final f/u doppler reading, prelim neg d/w Dr. Pope, agrees with above Status: Acute (2) Degenerative joint disease of knee, left Assessment & Plan: mild Status: Chronic
--- NOTE | 2017-07-19 07:39 | CP.PCM.PN ---
Objective - Vital Signs/Intake and Output Vital Signs (last 24 hours): Temp Pulse Resp BP Pulse Ox 98.5 F 74 16 133/79 97 07/19/17 04:00 07/19/17 04:00 07/19/17 04:00 07/18/17 20:09 07/19/17 00:00 Intake and Output: 07/19/17 07/19/17 06:59 18:59 Intake Total 840 Output Total 800 Balance 40 - Medications Medications: Current Medications Diphenhydramine HCl (Benadryl) 25 mg PO BID [facility] Last Admin: 07/18/17 18:00 Dose: Not Given Piperacillin Sod/Tazobactam (Sod 3.375 gm/ Sodium Chloride) 100 mls @ 200 mls/ hr IVPB Q6H [facility] Last Admin: 07/19/17 06:29 Dose: 200 mls/hr Vancomycin/Sodium Chloride (Vancocin) 1 gm in 200 mls @ 133 mls/hr IVPB Q12H [facility] Stop: 07/22/17 22:01 Last Admin: 07/18/17 22:40 Dose: 133 mls/hr Ketorolac Tromethamine (Toradol) 15 mg IVP Q6 PRN PRN Reason: Pain, moderate (4-7) Last Admin: 07/17/17 15:55 Dose: 15 mg Methylprednisolone (Solu-Medrol) 40 mg IV Q8 [facility] Last Admin: 07/19/17 06:10 Dose: 40 mg Oxycodone/Acetaminophen (Percocet 5/325 Mg Tab) 1 tab PO Q4H PRN PRN Reason: pain Stop: 07/20/17 08:28 Last Admin: 07/17/17 18:26 Dose: 1 tab Pantoprazole Sodium (Protonix Inj) 40 mg IVP DAILY [facility] Last Admin: 07/18/17 09:33 Dose: 40 mg - Labs Labs: 07/19/17 06:05 07/19/17 06:05 PT 11.8 SECONDS (9.7-12.2) 07/16/17 12:10 INR 1.0 07/16/17 12:10 APTT 26 SECONDS (21-34) 07/16/17 12:10
[2017-07-19 07:43] LABS: RUBELLA AB (IGG) 2.57 index
[2017-07-19 08:42] LABS: NEUTROPHIL 89 % (50-75); REACTIVE LYMPHOCYTES 1 % (0-0); TOTAL CELLS COUNTED 100
[2017-07-19] MEDS: Vancomycin 1 gm/NS 200 ml 1 GM/200 ML BAG IVPB SCH (09:24)
[2017-07-19 11:44] LABS: MEASLES AB (IGG) >300.00 AU/mL; MUMPS VIRUS AB (IGG) >300.00 AU/mL
[2017-07-19] MEDS ORDERED: Pneumococcal 23-Valent Vaccine IM ONE (11:44)
--- NOTE | 2017-07-19 11:47 | CP.PCM.DIS ---
<oLttie Story - Last Filed: 07/19/17 18:00> Provider - Provider Date of Admission: 07/18/17 12:53 Attending physician: Cuco Mercedes MD Time Spent in preparation of Discharge (in minutes): 40 Hospital Course - Lab Results Lab Results: Micro Results 07/16/17 16:45 Blood S.aureus & Coag-Neg Staph PNA FISH - Final 07/16/17 16:45 Blood Blood Culture - Final Coagulase Neg Staphylococcus 07/16/17 16:45 Blood Gram Stain - Final 07/16/17 16:45 Blood Blood Culture - Preliminary NO GROWTH AFTER 48 HOURS 07/16/17 22:36 Nose MRSA Culture (Admit) - Final MRSA NOT DETECTED 07/17/17 Unknown Knee - Left Gram Stain - Final 07/17/17 Unknown Knee - Left Wound Culture - Preliminary NO GROWTH AFTER 24 HOURS Most Recent Lab Values WBC 15.0 K/uL (4.8-10.8) H 07/19/17 06:05 RBC 4.39 Mil/uL (3.80-5.20) 07/19/17 06:05 Hgb 8.1 g/dL (11.0-16.0) L 07/19/17 06:05 Hct 26.6 % (34.0-47.0) L 07/19/17 06:05 MCV 60.6 fL (81.0-99.0) L 07/19/17 06:05 MCH 18.5 pg (27.0-31.0) L 07/19/17 06:05 MCHC 30.6 g/dL (33.0-37.0) L 07/19/17 06:05 RDW 35.0 % (11.5-14.5) H 07/19/17 06:05 Plt Count 410 K/uL (130-400) H 07/19/17 06:05 MPV 8.8 fL (7.2-11.7) 07/19/17 06:05 Neut % (Auto) 89.9 % (50.0-75.0) H 07/19/17 06:05 Lymph % (Auto) 6.4 % (20.0-40.0) L 07/19/17 06:05 [place] % (Auto) 3.6 % (0.0-10.0) 07/19/17 06:05 Eos % (Auto) 0.0 % (0.0-4.0) 07/19/17 06:05 Baso % (Auto) 0.1 % (0.0-2.0) 07/19/17 06:05 Neut # 13.5 K/uL (1.8-7.0) H 07/19/17 06:05 Lymph # 1.0 K/uL (1.0-4.3) 07/19/17 06:05 [place] # 0.5 K/uL (0.0-0.8) 07/19/17 06:05 Eos # 0.0 K/uL (0.0-0.7) 07/19/17 06:05 Baso # 0.0 K/uL (0.0-0.2) 07/19/17 06:05 Neutrophils % (Manual) 89 % (50-75) H 07/19/17 06:05 Band Neutrophils % 3 % (0-2) H 07/19/17 06:05 Lymphocytes % (Manual) 4 % (20-40) L 07/19/17 06:05 Reactive Lymphs % 1 % (0-0) H 07/19/17 06:05 Monocytes % (Manual) 3 % (0-10) 07/19/17 06:05 Eosinophils % (Manual) 1 % (0-4) 07/18/17 06:19 Nucleated RBC % 1 % (0-0) H 07/18/17 06:19 Platelet Estimate Normal (NORMAL) 07/19/17 06:05 Large Platelets Present 07/18/17 06:19 Giant Platelets Present 07/18/17 06:19 RBC Morphology Normal 07/16/17 12:10 Polychromasia Slight 07/19/17 06:05 Hypochromasia (manual) Marked 07/19/17 06:05 Poikilocytosis (manual Moderate 07/19/17 06:05 Anisocytosis (manual) Moderate 07/19/17 06:05 Microcytosis (manual) Moderate 07/19/17 06:05 Macrocytosis (manual) Slight 07/19/17 06:05 Target Cells Slight 07/19/17 06:05 Tear Drop Cells Slight 07/19/17 06:05 Ovalocytes Slight 07/19/17 06:05 ESR 128 mm/hr (0-20) H 07/16/17 12:10 PT 11.8 SECONDS (9.7-12.2) 07/16/17 12:10 INR 1.0 07/16/17 12:10 APTT 26 SECONDS (21-34) 07/16/17 12:10 D-Dimer, Quantitative 410 ng/mlDDU (0-243) H 07/16/17 12:10 Sodium 138 mmol/L (132-148) 07/19/17 06:05 Potassium 4.5 mmol/L (3.6-5.2) 07/19/17 06:05 Chloride 102 mmol/L (98-107) 07/19/17 06:05 Carbon Dioxide 25 mmol/L (22-30) 07/19/17 06:05 Anion Gap 15 (10-20) 07/19/17 06:05 BUN 17 mg/dL (7-17) 07/19/17 06:05 Creatinine 0.7 MG/DL (0.7-1.2) 07/19/17 06:05 Est GFR ( Amer) > 60 07/19/17 06:05 Est GFR (Non-Af Amer) > 60 07/19/17 06:05 Random Glucose 306 mg/dL (65-105) H 07/19/17 06:05 Hemoglobin A1c 6.0 % (4.2-6.5) 07/19/17 06:05 Calcium 9.4 mg/dl (8.6-10.4) 07/19/17 06:05 Phosphorus 3.8 mg/dL (2.5-4.5) 07/19/17 06:05 Magnesium 1.8 mg/dL (1.6-2.3) 07/19/17 06:05 Total Bilirubin 0.4 mg/dL (0.2-1.3) 07/19/17 06:05 AST 16 U/L (14-36) 07/19/17 06:05 ALT 29 U/L (9-52) 07/19/17 06:05 Alkaline Phosphatase 71 U/L (38-126) 07/19/17 06:05 Total Protein 7.0 g/dL (6.3-8.3) 07/19/17 06:05 Albumin 3.4 g/dL (3.5-5.0) L 07/19/17 06:05 Globulin 3.7 gm/dL (2.2-3.9) 07/19/17 06:05 Albumin/Globulin Ratio 0.9 (1.0-2.1) L 07/19/17 06:05 TSH 3rd Generation 0.47 mIU/L (0.46-4.68) 07/16/17 12:10 Urine Color Red (YELLOW) 07/16/17 12:22 Urine Clarity Hazy (Clear) 07/16/17 12:22 Urine pH 5.0 (5.0-8.0) 07/16/17 12:22 Ur Specific Dunn 1.014 (1.003-1.030) 07/16/17 12:22 Urine Protein 2+ mg/dL (NEGATIVE) H 07/16/17 12:22 Urine Glucose (UA) Normal mg/dL (Normal) 07/16/17 12:22 Urine Ketones Negative mg/dL (NEGATIVE) 07/16/17 12:22 Urine Blood 3+ (NEGATIVE) H 07/16/17 12:22 Urine Nitrate Negative (NEGATIVE) 07/16/17 12:22 Urine Bilirubin Negative (NEGATIVE) 07/16/17 12:22 Urine Urobilinogen Normal mg/dL (0.2-1.0) 07/16/17 12:22 Ur Leukocyte Esterase 1+ Eliana/uL (Negative) H 07/16/17 12:22 Urine WBC (Auto) 4 /hpf (0-5) 07/16/17 12:22 Urine RBC (Auto) 2274 /hpf (0-3) H 07/16/17 12:22 Urine Bacteria Rare (<OCC) 07/16/17 12:22 Urine HCG, Qual Negative (NEGATIVE) 07/16/17 12:22 Fluid Type Synovial fluid 07/17/17 12:31 Fluid Crystals Positive (NEGATIVE) H 07/17/17 12:31 Synovial WBC 46190.0 /mm3 (0.0-150.0) H 07/17/17 12:31 Synovial RBC 4266.0 /mm3 (0.0-0.0) H 07/17/17 12:31 Synovial Neutrophils 94.0 % (0-0) H 07/17/17 12:31 Synovial Lymphocytes 2.0 % (0-0) H 07/17/17 12:31 Synov Monos/Macrophage 4 % (0-0) H 07/17/17 12:31 Synovial Crystal Type Calciumpyrophosphate 07/17/17 12:31 Synovial Fluid Comment 07/17/17 12:31 RPR Nonreactive (NONREACTIVE) 07/16/17 16:23 Hepatitis A IgM Ab Negative (NEGATIVE) 07/16/17 16:23 Hep Bs Antigen Negative (NEGATIVE) 07/16/17 16:23 Hep B Core IgM Ab Negative (NEGATIVE) 07/16/17 16:23 Hepatitis C Antibody Negative (NEGATIVE) 07/16/17 16:23 HIV 1&2 Antibody Screen Negative (NEGATIVE) 07/16/17 16:23 Mumps Virus IgG Ab >300.00 AU/mL 07/18/17 10:16 Rubella IgG Antibody 2.57 index 07/18/17 10:16 Rubeola (Measles) IgG >300.00 AU/mL 07/18/17 10:16 Blood Type O POSITIVE 07/16/17 12:43 Antibody Screen Negative 07/16/17 12:43 - Hospital Course Hospital Course: HPI: This is a 47 yo female with past medical hx of fibroids, anemia, sickle cell trait, presenting with chief complaint of leg pain/knee pain and rash. 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 She noticed her throat started itching. The next day, she had some almonds and cashews as well and later in the day started developing a rash on her legs. It began spreading up her body and started involving her abdomen and back and her arms. It was not itchy. She came into [facility] ER, says she was diagnosed with an "allergic reaction," and discharged home on benadryl and prednisone. The rash resolved incompletely and then started developing on her palms and soles as well. She then began feeling a heaviness in her legs and felt she could not walk. She is also reporting left knee pain. No recent travel. She is currently on her period and says she has been having heavy periods. PMH: sickle cell trait, anemia, fibroid PSH: C section x 4, cholecystectomy Allergies: NKDA Home meds: just recently prednisone and benadryl FH: HTN, eczema Social hx: Former smoker. Denies drinking and drug use. Lives in [place]. Sexual hx: denies recent sexual contact in the past 2 weeks. Normally with 1 partner. Hospital Course 07/16: ID was consulted - Dr. Briseno. Blood work was ordered - Blood cultures; RPR; HIV; hepatitis panel. Urine for gonorrhea and chlamydia was ordered. ECHO to rule out endocarditis was ordered. Ortho was consulted Dr. Pope for left knee effusion. Patient received 2 units of PRBC do to H/H: 5.5/20.5 on admission. 07/17: RPR nonreactive; HIV negative; Hepatitis panel: Negative. s/p Arthrocentesis of left knee: Synovial Neutrophils 94; WBC 60721; Lymphocytes 2.0 ; Crystal Type Calcium pyrophosphate. Zosyn was started. Gentamicin was started Solu-medrol 40mg Q8H was started. Another unit of PRBC was transfused due to an H/H of 05/21.9. 07/18: Improvement of Rash. ECHO to rule out endocarditis: EF 59.5%; No vegetations seen; Mild trace of MR; Mild TR; Normal LV systolic function; Normal Chamber. H/H stable. Pseudogout of left knee showed improvement- increased range of motion; patient ambulating. 07/19: H/H 8.1/26.6 stable. Improvement of rash. Improvement of left knee pseudogout - patient ambulating. Patient stable for discharge per Dr. Childers. Patient to start new medication: Prednisone 10mg two times per day for 3 days Prednisone 10mg once daily for three days Discharge with one cane. Discussed with patient she can take Motrin (NSAID) for her left knee pain. Discussed the side effects of long term care social worker use of Motrin (NSAID) such as upset stomach, bleeding and ulcers. Patient to follow up with primary physician in one week. Patient okay to return to work on Monday07/24/17. Patient to return to the emergency room if symptoms return or worsen. This is a brief summary of events. For a complete course, refer to the medical record. Discharge Exam - Head Exam Head Exam: ATRAUMATIC Discharge Plan - Follow Up Plan Condition: FAIR Disposition: HOME/ ROUTINE Instructions: Prednisone (By mouth), Food Allergy (DC), Anaphylaxis (DC), How to Choose and Use a Cane (GEN), Anemia (DC), Pseudogout (GEN) Additional Instructions: Pt to make a follow up appointment at the [facility] in [place] within one week. <Kumar Childers H - Last Filed: 07/20/17 09:37> Provider - Provider Date of Admission: 07/18/17 12:53 Attending physician: Cuco Mercedes MD Hospital Course - Lab Results Lab Results: Micro Results 07/19/17 06:00 Blood-Venous Blood Culture - Preliminary NO GROWTH AFTER 24 HOURS 07/19/17 05:30 Blood-Venous Blood Culture - Preliminary NO GROWTH AFTER 24 HOURS 07/16/17 16:45 Blood Blood Culture - Preliminary NO GROWTH AFTER 3 DAYS 07/17/17 Unknown Knee - Left Gram Stain - Final 07/17/17 Unknown Knee - Left Wound Culture - Preliminary No growth. 07/16/17 16:45 Blood S.aureus & Coag-Neg Staph PNA FISH - Final 07/16/17 16:45 Blood Blood Culture - Final Coagulase Neg Staphylococcus 07/16/17 16:45 Blood Gram Stain - Final 07/16/17 22:36 Nose MRSA Culture (Admit) - Final MRSA NOT DETECTED Most Recent Lab Values WBC 15.0 K/uL (4.8-10.8) H 07/19/17 06:05 RBC 4.39 Mil/uL (3.80-5.20) 07/19/17 06:05 Hgb 8.1 g/dL (11.0-16.0) L 07/19/17 06:05 Hct 26.6 % (34.0-47.0) L 07/19/17 06:05 MCV 60.6 fL (81.0-99.0) L 07/19/17 06:05 MCH 18.5 pg (27.0-31.0) L 07/19/17 06:05 MCHC 30.6 g/dL (33.0-37.0) L 07/19/17 06:05 RDW 35.0 % (11.5-14.5) H 07/19/17 06:05 Plt Count 410 K/uL (130-400) H 07/19/17 06:05 MPV 8.8 fL (7.2-11.7) 07/19/17 06:05 Neut % (Auto) 89.9 % (50.0-75.0) H 07/19/17 06:05 Lymph % (Auto) 6.4 % (20.0-40.0) L 07/19/17 06:05 [place] % (Auto) 3.6 % (0.0-10.0) 07/19/17 06:05 Eos % (Auto) 0.0 % (0.0-4.0) 07/19/17 06:05 Baso % (Auto) 0.1 % (0.0-2.0) 07/19/17 06:05 Neut # 13.5 K/uL (1.8-7.0) H 07/19/17 06:05 Lymph # 1.0 K/uL (1.0-4.3) 07/19/17 06:05 [place] # 0.5 K/uL (0.0-0.8) 07/19/17 06:05 Eos # 0.0 K/uL (0.0-0.7) 07/19/17 06:05 Baso # 0.0 K/uL (0.0-0.2) 07/19/17 06:05 Neutrophils % (Manual) 89 % (50-75) H 07/19/17 06:05 Band Neutrophils % 3 % (0-2) H 07/19/17 06:05 Lymphocytes % (Manual) 4 % (20-40) L 07/19/17 06:05 Reactive Lymphs % 1 % (0-0) H 07/19/17 06:05 Monocytes % (Manual) 3 % (0-10) 07/19/17 06:05 Eosinophils % (Manual) 1 % (0-4) 07/18/17 06:19 Nucleated RBC % 1 % (0-0) H 07/18/17 06:19 Platelet Estimate Normal (NORMAL) 07/19/17 06:05 Large Platelets Present 07/18/17 06:19 Giant Platelets Present 07/18/17 06:19 RBC Morphology Normal 07/16/17 12:10 Polychromasia Slight 07/19/17 06:05 Hypochromasia (manual) Marked 07/19/17 06:05 Poikilocytosis (manual Moderate 07/19/17 06:05 Anisocytosis (manual) Moderate 07/19/17 06:05 Microcytosis (manual) Moderate 07/19/17 06:05 Macrocytosis (manual) Slight 07/19/17 06:05 Target Cells Slight 07/19/17 06:05 Tear Drop Cells Slight 07/19/17 06:05 Ovalocytes Slight 07/19/17 06:05 ESR 128 mm/hr (0-20) H 07/16/17 12:10 PT 11.8 SECONDS (9.7-12.2) 07/16/17 12:10 INR 1.0 07/16/17 12:10 APTT 26 SECONDS (21-34) 07/16/17 12:10 D-Dimer, Quantitative 410 ng/mlDDU (0-243) H 07/16/17 12:10 Sodium 138 mmol/L (132-148) 07/19/17 06:05 Potassium 4.5 mmol/L (3.6-5.2) 07/19/17 06:05 Chloride 102 mmol/L (98-107) 07/19/17 06:05 Carbon Dioxide 25 mmol/L (22-30) 07/19/17 06:05 Anion Gap 15 (10-20) 07/19/17 06:05 BUN 17 mg/dL (7-17) 07/19/17 06:05 Creatinine 0.7 MG/DL (0.7-1.2) 07/19/17 06:05 Est GFR ( Amer) > 60 07/19/17 06:05 Est GFR (Non-Af Amer) > 60 07/19/17 06:05 Random Glucose 306 mg/dL (65-105) H 07/19/17 06:05 Hemoglobin A1c 6.0 % (4.2-6.5) 07/19/17 06:05 Calcium 9.4 mg/dl (8.6-10.4) 07/19/17 06:05 Phosphorus 3.8 mg/dL (2.5-4.5) 07/19/17 06:05 Magnesium 1.8 mg/dL (1.6-2.3) 07/19/17 06:05 Total Bilirubin 0.4 mg/dL (0.2-1.3) 07/19/17 06:05 AST 16 U/L (14-36) 07/19/17 06:05 ALT 29 U/L (9-52) 07/19/17 06:05 Alkaline Phosphatase 71 U/L (38-126) 07/19/17 06:05 Total Protein 7.0 g/dL (6.3-8.3) 07/19/17 06:05 Albumin 3.4 g/dL (3.5-5.0) L 07/19/17 06:05 Globulin 3.7 gm/dL (2.2-3.9) 07/19/17 06:05 Albumin/Globulin Ratio 0.9 (1.0-2.1) L 07/19/17 06:05 TSH 3rd Generation 0.47 mIU/L (0.46-4.68) 07/16/17 12:10 Urine Color Red (YELLOW) 07/16/17 12:22 Urine Clarity Hazy (Clear) 07/16/17 12:22 Urine pH 5.0 (5.0-8.0) 07/16/17 12:22 Ur Specific Dunn 1.014 (1.003-1.030) 07/16/17 12:22 Urine Protein 2+ mg/dL (NEGATIVE) H 07/16/17 12:22 Urine Glucose (UA) Normal mg/dL (Normal) 07/16/17 12:22 Urine Ketones Negative mg/dL (NEGATIVE) 07/16/17 12:22 Urine Blood 3+ (NEGATIVE) H 07/16/17 12:22 Urine Nitrate Negative (NEGATIVE) 07/16/17 12:22 Urine Bilirubin Negative (NEGATIVE) 07/16/17 12:22 Urine Urobilinogen Normal mg/dL (0.2-1.0) 07/16/17 12:22 Ur Leukocyte Esterase 1+ Eliana/uL (Negative) H 07/16/17 12:22 Urine WBC (Auto) 4 /hpf (0-5) 07/16/17 12:22 Urine RBC (Auto) 2274 /hpf (0-3) H 07/16/17 12:22 Urine Bacteria Rare (<OCC) 07/16/17 12:22 Urine HCG, Qual Negative (NEGATIVE) 07/16/17 12:22 Fluid Type Synovial fluid 07/17/17 12:31 Fluid Crystals Positive (NEGATIVE) H 07/17/17 12:31 Synovial WBC 31285.0 /mm3 (0.0-150.0) H 07/17/17 12:31 Synovial RBC 4266.0 /mm3 (0.0-0.0) H 07/17/17 12:31 Synovial Neutrophils 94.0 % (0-0) H 07/17/17 12:31 Synovial Lymphocytes 2.0 % (0-0) H 07/17/17 12:31 Synov Monos/Macrophage 4 % (0-0) H 07/17/17 12:31 Synovial Crystal Type Calciumpyrophosphate 07/17/17 12:31 Synovial Fluid Comment 07/17/17 12:31 RPR Nonreactive (NONREACTIVE) 07/16/17 16:23 Hepatitis A IgM Ab Negative (NEGATIVE) 07/16/17 16:23 Hep Bs Antigen Negative (NEGATIVE) 07/16/17 16:23 Hep B Core IgM Ab Negative (NEGATIVE) 07/16/17 16:23 Hepatitis C Antibody Negative (NEGATIVE) 07/16/17 16:23 HIV 1&2 Antibody Screen Negative (NEGATIVE) 07/16/17 16:23 Mumps Virus IgG Ab >300.00 AU/mL 07/18/17 10:16 Rubella IgG Antibody 2.57 index 07/18/17 10:16 Rubeola (Measles) IgG >300.00 AU/mL 07/18/17 10:16 Blood Type O POSITIVE 07/16/17 12:43 Antibody Screen Negative 07/16/17 12:43 Attending/Attestation - Attestation I have personally seen and examined this patient.: Yes I have fully participated in the care of the patient.: Yes I have reviewed all pertinent clinical information, including history, physical exam and plan: Yes Notes (Text): 07/20/17 09:33 Medical Attending: Patient was seen and examined by me. Agree with the above note by the resident. The patient's rashes on her chest, legs, and forearms were much improved to her. We also discussed some of the other testing including the echo, blood cultures, and lab work with the patient. As mentioned previously she does have anemia and required transfusion. The anemia appears to be from heavy menstrations as well as fibroids. She was able to stand and walk on physicial exam. She explains to us that the tranfusions have helped her feel less fatigued and tired as well as the medication regimen for allergies also helped alot. Likely this was a food allergy thank you Kumar Childers
[2017-07-19 12:52] VITALS: BP 144/87; PULSE 92; RESP 22; TEMP 97.6; O2SAT 98
[2017-07-21 08:15] LABS: 18 KD (IGG) BAND Nonreactive; 23 KD (IGG) BAND Nonreactive; 23 KD (IGM) BAND Reactive; 28 KD (IGG) BAND Nonreactive; 30 KD (IGG) BAND Nonreactive; 39 KD (IGG) BAND Nonreactive; 39 KD (IGM) BAND Nonreactive; 41 KD (IGG) BAND Reactive; 41 KD (IGM) BAND Nonreactive; 45 KD (IGG) BAND Nonreactive; 58 KD (IGG) BAND Nonreactive; 66 KD (IGG) BAND Nonreactive; 93 KD (IGG) BAND Nonreactive; LYME DISEASE INTERP (IGG) Negative (Negative)
[2017-07-21 11:57] LABS: R. TYPHI IGM Not Detected (Not Detected)
[2017-07-21 13:18] LABS: R. TYPHI IGG Not Detected (Not Detected); RMSF IGG Not Detected (Not Detected)
== END 2017-07-19 14:00 | disposition home or self-care (01) | DRG 565 ==
LOC: C.ER 10:27 → C.9E 13:18 → C.9I 21:23 → OBSVTOIN 07-18 12:53
PROVIDERS: ADMIT Internal Medicine; ATTEND Internal Medicine
PROC: 0S9C3ZX Drainage of Right Knee Joint, Percutaneous Approach, Diagnostic (ICD-10-PCS; principal; 2017-07-17)
PROC: 30233N1 Transfusion of Nonautologous Red Blood Cells into Peripheral Vein, Percutaneous Approach (ICD-10-PCS; 2017-07-17)
DX: M25.462 Effusion, left knee (principal); D69.0 Allergic purpura; D57.3 Sickle-cell trait; Z87.891 Personal history of nicotine dependence; N92.0 Excessive and frequent menstruation with regular cycle; L27.2 Dermatitis due to ingested food